=== PATIENT | female | born 1960 | race Asian ===

== ENCOUNTER 2017-08-12 08:28 | Outpatient (CLI) | payer BC | END 2017-08-12 22:12 | disposition home or self-care (01) | LOC: RAD 08:28 | DX: R05 Cough (principal) ==

== ENCOUNTER 2018-03-02 07:57 | Outpatient (CLI) | payer BC | END 2018-03-02 22:46 | LOC: RESP 07:57 | DX: I10 Essential (primary) hypertension (principal) | CPT/HCPCS: 93005 ==

== ENCOUNTER 2019-08-02 05:38 | Emergency (ER) | payer BC ==
[~2019-08-02] VITALS: Ht 170.2 cm; Wt 111.1 kg
[2019-08-02 07:00] VITALS: BP 173/96; TEMP 97.3
== END 2019-08-02 07:00 | disposition home or self-care (01) ==
LOC: ED 05:38
PROC: 2W3QX1Z Immobilization of Right Lower Leg using Splint (ICD-10-PCS; principal; 2019-08-02)
DX: S82.841A Displaced bimalleolar fracture of right lower leg, initial encounter for closed fracture (principal); W19.XXXA Unspecified fall, initial encounter; Y92.098 Other place in other non-institutional residence as the place of occurrence of the external cause
CPT/HCPCS: 96372; 99283; J1885

== ENCOUNTER 2019-11-29 07:30 | Outpatient (CLI) | payer BC ==
[2019-11-29 08:24] LABS: PLATELET COUNT 257 K/uL (152-353)
== END 2019-11-29 19:10 | disposition home or self-care (01) ==
LOC: LABW 07:30
PROVIDERS: Internal Medicine Medical Oncology
DX: C50.412 Malignant neoplasm of upper-outer quadrant of left female breast (principal); D64.89 Other specified anemias; E55.9 Vitamin D deficiency, unspecified
CPT/HCPCS: 36415; 80053; 82306; 82525; 82607; 82728; 83540; 83550; 85027

== ENCOUNTER 2021-07-16 13:45 | Emergency (ER) | payer BC ==
[~2021-07-16] VITALS: Ht 170.2 cm; Wt 126.1 kg
[2021-07-16 13:45] VITALS: TEMP 98.8
[2021-07-16 14:07] LABS: PLATELET COUNT 192 K/uL (152-353)
[2021-07-16 14:14] LABS: POTASSIUM 2.8 mmol/L (3.6-5.2)
[2021-07-16 14:33] LABS: PARTIAL THROMBOPLASTIN TIME 21.8 SECONDS (24.5-33.6)
[2021-07-16 17:00] VITALS: BP 119/61
== END 2021-07-16 17:23 | disposition home or self-care (01) ==
LOC: EDBD 13:45 → ED 13:45
PROVIDERS: Emergency Medicine
DX: K21.9 Gastro-esophageal reflux disease without esophagitis (principal); R10.13 Epigastric pain; R94.5 Abnormal results of liver function studies; E87.6 Hypokalemia
CPT/HCPCS: 36415; 80053; 80320; 83880; 84484; 85027; 85379; 85610; 85730; 93005; 96365; 96375; 99284; J1170; J2405; J3490

== ENCOUNTER 2022-05-27 08:10 | Outpatient (CLI) | payer BC | END 2022-05-27 19:37 | disposition home or self-care (01) | LOC: MAMMO 08:10 | PROVIDERS: ATTEND Nurse Practitioner Family | DX: C50.412 Malignant neoplasm of upper-outer quadrant of left female breast (principal); R91.1 Solitary pulmonary nodule; D64.89 Other specified anemias; E55.9 Vitamin D deficiency, unspecified; Z12.31 Encounter for screening mammogram for malignant neoplasm of breast ==